=== PATIENT | male | born 1965 | race Caucasian/White ===

== ENCOUNTER 2025-04-16 12:31 | Emergency (ER) | payer BC, SELFPAY ==
[2025-04-16 12:33] VITALS: BP 126/72
--- NOTE | 2025-04-16 13:43 | ED.GENMED ---
History of Present Illness
General
Chief Complaint: Rabies
Source: patient
Exam Limitations: none
Time Seen by Provider: 04/16/25 13:10
History of Present Illness
History of Present Illness:
59yoM presenting for rabies vaccination. Patient had a bat in his home yesterday and his daughter was able to remove the bat and release it. He called his PCP today and was told to go to the ED for a rabies vaccine. He denies any known bite or
injury from the bat.
Phy Exam
General Physical Exam
General Presentation: well appearing and no apparent distress
General Skin: warm and dry
General Habitus: normal
General Mental: alert
ENT Exam
ENT Exam: normocephalic
Pulmonary Exam
Pulmonary Exam: no respiratory distress
Neurological Exam
Neurological Exam: alert
[place] Coma Scale
Eye Opening: Spontaneous
Verbal Response: Oriented
Motor Response: Obeys Commands
GCS Total Score: 15
Skin Exam
Skin Exam: normal color and warm/dry
Psychiatric Exam
Psychiatric Exam: normal mood/affect
Course
Orders/Labs/Results
Orders:
Orders
04/16/25 13:43
Rabies Immune Globulin/Pf [HyperRAB] 1,920 unit IM NOW STA
04/16/25 13:45
Rabies Vaccine (Pcec)/Pf [Rabavert Rabies Vacc W-Diluent] 2.5 unit IM .ONCE ONE
Vital Signs
Initial and Last Documented VS:
Initial Vital Signs
Temp Pulse Resp BP Pulse Ox
98.1 F 77 18 126/72 96
04/16/25 12:33 04/16/25 12:33 04/16/25 12:33 04/16/25 12:33 04/16/25 12:33
Last Documented Vital Signs
Temp Pulse Resp BP Pulse Ox
98.1 F 77 18 126/72 96
04/16/25 12:33 04/16/25 12:33 04/16/25 12:33 04/16/25 12:33 04/16/25 13:44
MDM/Problems Addressed
Differential Diagnosis Includes:
59yoM here for rabies vaccine after a bat was found in his home and released outside. Denies known injuries. Vaccine and immunoglobulin ordered. He is unable to schedule appts at the infusion center due to his work schedule and he will return to the
ED for the remainder of his vaccines.
*Pulse Oximetry
SaO2: 96
Oxygen Mode of Delivery: Room air
Patient hypoxic: no (96%)
*Critical Care Note
Total Time (30-74mins, 75-104mins- exclusive of procedures): Not Applicable
ED Attending Note
-
Portions of this chart may have been created with voice recognition software.� Occasional wrong word or��sound alike� substitutions may have occurred due to the inherent limitations of voice recognition software.
Discharge Plan
Departure
Patient Disposition: Home (Routine Discharge)
Date of Disposition: 04/16/25
Time of Disposition: 13:44
Patient with high blood pressure during this ER visit?: No
Discharge Problem:
Need for prophylactic vaccination against rabies
Instructions: Rabies Vaccine CDC Vaccine Information Statement (VIS)
Stand Alone Forms: Rabies Vaccine Post Exp Dosing
Activity Restrictions/Additional Instructions:
Return to the ER on 04/19/25, 04/23/25, and 04/30/25 for remainder of your rabies vaccines.
Interventions
Interventions:
*Risk Screen - Suicide Last Done: 04/16/25 12:33
*General Assessment Last Done: 04/16/25 13:35
*Neglect/Abuse Screening Last Done: 04/16/25 13:35
*ED- Fall Risk Assessment Last Done: 04/16/25 13:35
*ED COVID-19 Vaccine History Last Done: 04/16/25 13:35
Discharge Date and Time
Print Language: INDONESIAN
[2025-04-16] MEDS: RABAVERT RABIES VACC W-DILUENT 2.5 UNIT IM (14:08)
== END 2025-04-16 14:48 | disposition home or self-care (01) ==
LOC: EMR 12:31
PROVIDERS: EMERGENCY PHYSICIAN Emergency Medicine; FAMILY PHYSICIAN Family Medicine
DX: Z20.3 Contact with and (suspected) exposure to rabies (principal); Z23 Encounter for immunization; Z29.14 Encounter for prophylactic rabies immune globulin
CPT/HCPCS: 90471; 96372; 99284; 90375; 90675

== ENCOUNTER 2025-04-19 03:29 | Emergency (ER) | payer BC, SELFPAY ==
[2025-04-19 03:40] VITALS: BP 109/75
--- NOTE | 2025-04-19 04:08 | ED.GENMED ---
History of Present Illness
General
Chief Complaint: Rabies
Source: patient
Time Seen by Provider: 04/19/25 04:07
History of Present Illness
History of Present Illness:
59-year-old male who presents emergency department for his second rabies vaccine. He was initially seen on April 16 secondary to exposure to a live bat, denies any specific bite or injury. He denies any concerns related to first vaccine injection.
Past History
Past History
ED Past Medical History: Other (Reported venous insufficiency)
Social History
Tobacco: Non-smoker
Living: with family
Phy Exam
Physical Exam
Physical Exam:
GENERAL: Alert , in no apparent distress
EYE: pupils equal and reactive
NECK: Supple, no significant adenopathy.
ENT: o/p clr, mmm.
CARDIAC: Regular rate and rhythm .
LUNGS: Clear breath sounds bilaterally, no acute respiratory distress, no wheezes/rales/rhonchi
ABDOMEN: Soft, without focal tenderness, no r/g, no cvat
NEUROLOGICAL: Alert and oriented, no focal neuro deficits
SKIN: Warm and dry, skin intact.
MUSCULOSKELETAL: No edema, well perfused.
PSYCH: Normal and appropriate interaction.
Course
Orders/Labs/Results
Orders:
Orders
04/19/25 04:15
Rabies Vaccine (Pcec)/Pf [Rabavert Rabies Vacc W-Diluent] 2.5 unit IM .ONCE ONE
Vital Signs
Initial and Last Documented VS:
Initial Vital Signs
Temp Pulse Resp BP Pulse Ox
98.3 F 67 14 109/75 99
04/19/25 03:40 04/19/25 03:40 04/19/25 03:40 04/19/25 03:40 04/19/25 03:40
Last Documented Vital Signs
Temp Pulse Resp BP Pulse Ox
98.3 F 67 14 109/75 99
04/19/25 03:40 04/19/25 03:40 04/19/25 03:40 04/19/25 03:40 04/19/25 04:10
*Pulse Oximetry
SaO2: 99
Oxygen Mode of Delivery: Room air
Patient hypoxic: no
*Critical Care Note
Total Time (30-74mins, 75-104mins- exclusive of procedures): Not Applicable
Update Note
Update Note:
Patient presents to the Emergency Department with ___request for second rabies vaccine
Number and Complexity of Problems Addressed at the Encounter
� Chronic conditions affecting care:
� Acute Exacerbation and/or Progression of Chronic Illness:
� Differential Diagnosis includes: But not limited to need for rabies vaccine, side effect of vaccine received prior, etc.
Amount and/or Complexity of Data to be Reviewed and Analyzed
� I performed an independent evaluation of and my interpretation is:
EKG:
CT:
Xrays:
Laboratory Studies:
Other:
� Review of other/old records reveals:
� Clinical information was obtained by an independent historian:
� Prescriptions/Medications Considered but not given:
� Further testing considered but not performed:
Risk of Complications and/or Morbidity or Mortality of Patient Management
� Social determinants of health affecting care:
� Discussion with other providers (PCP, Hospitalists, Consultants, etc):
� Escalation of care including admission/observation vs risk of discharge considered: Patient given second dose of vaccine here, encouraged to go to [facility] for remaining vaccines. That is his intention, states he has been unable to
do so thus far given his work schedule.
ED Attending Note
-
Portions of this chart may have been created with voice recognition software.� Occasional wrong word or��sound alike� substitutions may have occurred due to the inherent limitations of voice recognition software.
Discharge Plan
Departure
Patient Disposition: Home (Routine Discharge)
Date of Disposition: 04/19/25
Time of Disposition: 04:18
Patient with high blood pressure during this ER visit?: No
Condition: Good
Discharge Problem:
Need for rabies vaccination
Instructions: Rabies
Prescriptions:
No Action
multivitamin Tablet
1 tab PO DAILY
Stand Alone Forms: Rabies Vaccine Post Exp Dosing
Activity Restrictions/Additional Instructions:
Return to the ER (or go to infusion center) on 04/23/25, and 04/30/25 for remainder of your rabies vaccines.
Interventions
Interventions:
*Risk Screen - Suicide Last Done: 04/19/25 03:40
*General Assessment Last Done: 04/19/25 04:11
*Neglect/Abuse Screening Last Done: 04/19/25 04:11
*ED- Fall Risk Assessment Last Done: 04/19/25 04:11
*ED COVID-19 Vaccine History Last Done: 04/19/25 04:11
*Nursing Disposition Last Done: 04/19/25 04:30
Discharge Date and Time
Discharge Date/Time: 04/19/25 04:33
Print Language: ROMANIAN
[2025-04-19 04:11] VITALS: BMI 27.8
[2025-04-19] MEDS: RABAVERT RABIES VACC W-DILUENT 2.5 UNIT IM (04:23)
== END 2025-04-19 04:33 | disposition home or self-care (01) ==
LOC: EMR 03:29
PROVIDERS: EMERGENCY PHYSICIAN Emergency Medicine; FAMILY PHYSICIAN Family Medicine
DX: Z23 Encounter for immunization (principal); Z20.3 Contact with and (suspected) exposure to rabies
CPT/HCPCS: 99281; 90471; 90675

== ENCOUNTER 2025-04-29 15:07 | Outpatient (RCR) | payer BC, SELFPAY ==
[2025-04-22 08:45] VITALS: BP 129/68
[2025-04-22] MEDS: RABAVERT RABIES VACC W-DILUENT 2.5 UNIT IM (08:55)
[2025-04-29 15:15] VITALS: BP 121/84
[2025-04-29] MEDS: RABAVERT RABIES VACC W-DILUENT 2.5 UNIT IM (15:28)
== END 2025-05-01 23:59 | disposition home or self-care (01) ==
LOC: OID 15:07
PROVIDERS: ATTENDING PHYSICIAN Physician Assistant; FAMILY PHYSICIAN Emergency Medicine
DX: Z20.3 Contact with and (suspected) exposure to rabies (principal); Z23 Encounter for immunization
CPT/HCPCS: 90471; 90675

== ENCOUNTER 2025-05-16 21:02 | Emergency (ER) | payer BC, SELFPAY ==
[2025-05-16 21:07] VITALS: BP 130/90
[2025-05-17 00:27] VITALS: BP 126/92; BMI 28.2
[2025-05-17] MEDS: TORADOL 15 MG IM (00:29)
--- NOTE | 2025-05-17 00:33 | ED.SKININJ ---
HPI-Injury
General
Chief Complaint: Bite
Source: patient
Exam Limitations: none
Time Seen by Provider: 05/17/25 00:00
Nursing documentation reviewed up to this point in time: agreed with
History of Present Illness-Injury
Is this injury a work related problem?: No
Is pt an associate of [facility]?: No
Initial Injury comments:
67-year-old male with no past medical history presents to the ER today with concerns of pain noted to the right inner ankle as well as swelling. He has no past medical history. He reports that this started after leaving work at around 6:30 PM. He
works as a account executive trainee. He took some ibuprofen with minimal improvement. He started to notice a red dot form on the inside of his ankle and he was concerned about a bug bite however he notes no palpable mass, no itchiness. Over time, the pain
started to increase and he has of increased swelling. Patient does not recall any clear injury to the area does not recall twisting his ankle. He does not recall falling. The pain does not affect the top of the foot. He is able to ambulate
without any difficulty. Walking exacerbates the pain by rest he feels comfortable. He has no fevers or chills. No redness spreading up the leg. The patient followed with orthopedist years ago after he broke his leg however he currently does not
follow with the orthopedist. He does see a family doctor.
Past History
Past History
ED Past Medical History: Other (Reported venous insufficiency)
Social History
Tobacco: Non-smoker
Living: with family
Review of Systems
Review of Systems
All Other Systems: ROS reviewed and negative except as documented in HPI and ROS
Phy Exam
Physical Exam
Physical Exam:
General: Patient is well appearing and in no acute distress; non-toxic
Skin: Warm and dry, no rashes or lesions
Head: Normocephalic, atraumatic
Eyes: Sclera non-icteric. EOMs intact.
Cardiac: Regular rate and rhythm, no murmurs
Peripheral Vascular: No lower extremity swelling or edema
Pulm: Normal respiratory effort
Musculoskeletal: Right medial ankle swelling noted with 2 cm area of erythema. No palpable mass or bony deformity. Anterior drawer testing of the right ankle negative. Some pain with valgus stress. No joint laxity. No proximal tenderness, full
range of motion of bilateral lower extremities. Stable gait.
Neuro: CN II-XII intact, no focal neurologic deficits.
Psychiatric: Appropriate mood and affect.
Course
Orders/Labs/Results
Orders:
Orders
05/17/25 00:12
Ketorolac [Toradol] 15 mg IM NOW STA
CR Ankle - Right Min 3 Views * Urgent
Reason For Exam: right ankle pain, swelling
Vital Signs
Initial and Last Documented VS:
Initial Vital Signs
Temp Pulse Resp BP Pulse Ox
97.9 F 84 20 130/90 99
05/16/25 21:07 05/16/25 21:07 05/16/25 21:07 05/16/25 21:07 05/16/25 21:07
Last Documented Vital Signs
Temp Pulse Resp BP Pulse Ox
97.9 F 55 18 126/92 99
05/16/25 21:07 05/17/25 00:28 05/17/25 00:28 05/17/25 00:27 05/17/25 00:33
MDM/Problems Addressed
Differential Diagnosis Includes:
Differentials include osteo arthritis, gout, tendinitis, cellulitis, sprain, arthritis, insect bite, contact dermatitis
MDM/Problems Addressed:
59-year-old male presents emergency department today with concerns of atraumatic joint swelling and pain. He is concerned of possible bug bite as he had a small area of erythema over the area. His physical exam is unremarkable. He is able
ambulate with any difficulty. Pain significantly improved with Toradol. No concern for septic arthritis as he has no fever, full range of motion etc. Suspect symptoms and presentation likely related to osteoarthritis versus gout Versus acute
sprain. Considering degree of swelling, will start on Medrol Dosepak. Discussed return precautions and discussed follow-up with primary for reassessment. Patient stable for discharge.
Chronic conditions affecting care:
N/A
*Pulse Oximetry
SaO2: 99
Oxygen Mode of Delivery: Room air
Patient hypoxic: no
*Critical Care Note
Total Time (30-74mins, 75-104mins- exclusive of procedures): Not Applicable
ED Attending Note
-
Portions of this chart may have been created with voice recognition software.� Occasional wrong word or��sound alike� substitutions may have occurred due to the inherent limitations of voice recognition software.
Discharge Plan
Departure
Patient Disposition: Home (Routine Discharge)
Date of Disposition: 05/17/25
Time of Disposition: 01:57
Patient with high blood pressure during this ER visit?: Yes
Condition: Good
Discharge Problem:
Pain and swelling of right ankle
Instructions: Swollen Joints (DC), BLOOD PRESSURE
Prescriptions:
New
methylprednisolone [Medrol (Jmaal)] 4 mg tablets,dose pack
See Rx Instructions .ROUTE .COMPLEX Qty: 21 0RF
Rx Instructions:
orally per package directions
No Action
Fish Oil Capsule
1 cap PO DAILY
multivitamin Tablet
1 tab PO DAILY
Referrals:
Jeff Benedict DO [Family Provider, Family Practice]
Suhail Downey DPM [Active, Podiatry] - Call in 1-3 days for appt
Activity Restrictions/Additional Instructions:
Please follow up with your primary care provider. Please look out for worsening symptoms such as increasing redness, increasing swelling, inability to bear weight, fevers or chills, pallor, loss of sensation, or any other signs or symptoms
worrisome to you.
You have been given prescription for Medrol Dosepak. Please follow package instructions for dosing.
Should you have persistent swelling, recommend scheduling appointment with Dr. Downey electric solderer.
Interventions
Interventions:
*Risk Screen - Suicide Last Done: 05/16/25 21:07
*General Assessment Last Done: 05/16/25 21:07
*Neglect/Abuse Screening Last Done: 05/16/25 21:07
*ED- Fall Risk Assessment Last Done: 05/16/25 21:07
*ED COVID-19 Vaccine History Last Done: 05/16/25 21:07
*Nursing Disposition Last Done: 05/17/25 02:04
ED-Skin Assessment Last Done: 05/17/25 00:33
Discharge Date and Time
Discharge Date/Time: 05/17/25 02:06
Print Language: ROMANIAN
== END 2025-05-17 02:06 | disposition home or self-care (01) ==
LOC: EMR 21:02
PROVIDERS: EMERGENCY PHYSICIAN Emergency Medicine; FAMILY PHYSICIAN Family Medicine
DX: M25.571 Pain in right ankle and joints of right foot (principal); R22.41 Localized swelling, mass and lump, right lower limb
CPT/HCPCS: 96372; 99284; 73610